=== PATIENT | female | born 1990 | race Caucasian/White ===

== ENCOUNTER 2018-03-07 22:19 | Emergency (ER) | payer MEDICAID ==
[~2018-03-07] VITALS: Ht 162.6 cm; Wt 70.2 kg
[2018-03-07 22:29] VITALS: BP 136/84
== END 2018-03-08 03:00 | disposition left against medical advice (07) ==
LOC: EDBD 22:19 → ER 22:41
DX: Z53.21 Procedure and treatment not carried out due to patient leaving prior to being seen by health care provider (principal)